=== PATIENT | female | born 1945 | race Hispanic/Latino ===

== ENCOUNTER 2018-09-15 15:45 | Emergency (ER) | payer MEDICARE, MEDICAID ==
[2018-09-15 16:10] LABS: #Eosinphils 0.2 thou/uL (0.0-0.7); #Lymphocytes 1.2 thou/uL (1.20-3.40); #Monocytes 0.5 thou/uL (0.11-0.59); #Neutrophils 3.2 thou/uL (1.40-6.50); %Basophils 0.2 % (0.0-1.0); %Eosinophils 3.8 % (0.0-10.0); %Lymphocytes 23.7 % (21.0-51.0); %Monocytes 9.6 % (0.0-10.0); %Neutrophils 62.7 % (42.0-75.0); Hemoglobin 13.1 g/dL (12.0-16.0); Mean Corpuscular HGB CONC 33.3 g/dL (32.0-36.0); Mean Corpuscular Hemoglobin 29.3 pg (27.0-31.0); Mean Corpuscular Volume 88.2 fL (78.0-98.0); Mean Platelet Volume 9.6 fL (7.4-10.4); Platelet Count 169 thou/uL (130-400); RBC Distribution Width 11.8 % (11.5-14.5); Red Blood Cell (RBC) Count 4.46 mill/uL (4.20-5.40); White Blood Cell (WBC) Count 5.2 thou/uL (4.8-10.8)
[2018-09-15 16:33] LABS: ALT (SGPT) 17 U/L (8-55); AST (SGOT) 20 U/L (5-34); Albumin 4.1 g/dL (3.4-4.8); Alkaline Phosphatase 121 U/L (40-150); Anion Gap 15 mmol/L (10-20); BUN (Urea Nitrogen) 13 mg/dL (9.8-20.1); Bilirubin, Total 0.5 mg/dL (0.2-1.2); Calc. Creatinine Clearance 0 mL/min (70-130); Calcium 8.9 mg/dL (7.8-10.44); Carbon Dioxide 24 mmol/L (23-31); Chloride 102 mmol/L (98-107); Estimated GFR-MDRD 63; Globulin 3.6 g/dL (2.4-3.5); Glucose 141 mg/dL (83-110); Potassium 3.5 mmol/L (3.5-5.1); Protein, Total 7.7 g/dL (6.0-8.3); Sodium 137 mmol/L (136-145)
--- NOTE | 2018-09-15 16:47 | CT ---
EXAM: CT brain without contrast HISTORY: Left-sided facial numbness for a week. COMPARISON: None TECHNIQUE: Multiple contiguous axial images were obtained and a CT of the brain without contrast. FINDINGS: A remote lacunar infarction is seen in the left ventricular white matter. A cavum septum pe llucidum is incidentally seen. No large confluent infarction is seen. There is no evidence of hydrocephalus, intracranial hemorrhage, or extra-axial fluid collection. The calvarium and overlying soft tissues are unremarkable. The visualized paranasal sinuses and masto id air cells are well aerated. IMPRESSION: No evidence of acute intracranial abnormality
--- NOTE | 2018-09-15 17:42 | RAD ---
EXAM: Single view of the chest HISTORY: Left-sided facial numbness for one week COMPARISON: None FINDINGS: Single view of the chest shows a normal sized cardiomediastinal silhouette. There is no maureen dence of consolidation, mass, or pleural effusion. The bones are unremarkable. IMPRESSION: No evidence of acute cardiopulmonary disease
--- NOTE | 2018-09-15 18:35 | MRI ---
EXAM: MRI of the brain without contrast HISTORY: Dizziness and left facial numbness 1:00 PM COMPARISON: CT brain 09/15/2018 TECHNIQUE: Multiplanar multisequence MR images were obtained of the brain without IV contrast. FINDINGS: Scattered foci of high T2/FLAIR signal in the subcortical and periventricular white matter are likely secondary to small vessel ischemic disease. No restricted diffusion. No hydronephrosis. No extra-axial fluid collection or intracranial hemorrhage. The expected flow voids are present. Corpus callosum, pituitary, and craniocervical junction are within normal limits. The calvarium and overlying soft tissues are unremarkable. The paranasal sinuses and mastoid air cells are well aerated. IMPRESSION: No evidence of acute intracranial abnormality.
== END 2018-09-15 19:25 | disposition home or self-care (01) ==
LOC: ERS 15:45
DX: R42 Dizziness and giddiness (principal); R20.2 Paresthesia of skin; J45.909 Unspecified asthma, uncomplicated; I10 Essential (primary) hypertension; E11.9 Type 2 diabetes mellitus without complications; Z86.73 Personal history of transient ischemic attack (TIA), and cerebral infarction without residual deficits; Z79.82 Long term (current) use of aspirin; Z79.899 Other long term (current) drug therapy
CPT/HCPCS: 36415; 70450; 70551; 71045; 80053; 85025; 93005; J7620

== ENCOUNTER 2022-03-08 11:53 | Emergency (ER) | payer MEDICARE, MEDICAID ==
[2022-03-08 14:15] LABS: #Eosinphils 0.2 thou/uL (0.0-0.7); #Lymphocytes 0.4 thou/uL (1.20-3.40); #Monocytes 0.6 thou/uL (0.11-0.59); #Neutrophils 7.7 thou/uL (1.40-6.50); %Basophils 0.2 % (0.0-1.0); %Eosinophils 1.8 % (0.0-10.0); %Lymphocytes 4.8 % (21.0-51.0); %Neutrophils 86.1 % (42.0-75.0); Hemoglobin 12.9 g/dL (12.0-16.0); Mean Corpuscular HGB CONC 32.6 g/dL (32.0-36.0); Mean Corpuscular Hemoglobin 29.3 pg (27.0-31.0); Mean Corpuscular Volume 89.7 fl (78.0-98.0); Mean Platelet Volume 9.8 fL (7.4-10.4); Platelet Count 184 10x3/uL (130-400); RBC Distribution Width 11.5 % (11.5-14.5); Red Blood Cell (RBC) Count 4.39 mill/uL (4.20-5.40); White Blood Cell (WBC) Count 8.9 10x3/uL (4.8-10.8)
[2022-03-08 14:31] LABS: ALT (SGPT) 26 U/L (8-55); AST (SGOT) 21 U/L (5-34); Albumin 3.9 g/dL (3.4-4.8); Alkaline Phosphatase 101 U/L (40-110); Anion Gap 14 mmol/L (10-20); BUN (Urea Nitrogen) 17 mg/dL (9.8-20.1); Bilirubin, Total 0.5 mg/dL (0.2-1.2); Calc. Creatinine Clearance 0 mL/min (70-130); Calcium 8.9 mg/dL (7.8-10.44); Carbon Dioxide 24 mmol/L (23-31); Chloride 103 mmol/L (98-107); Estimated GFR 75; Globulin 3.7 g/dL (2.4-3.5); Glucose 124 mg/dL (83-110); Lipase 25 U/L (8-78); Potassium 3.5 mmol/L (3.5-5.1); Protein, Total 7.6 g/dL (5.8-8.1); Sodium 137 mmol/L (136-145)
[2022-03-08 15:00] LABS: Bacteria/HPF 3+ HPF (None Seen); Bilirubin Negative (Negative); Blood, Urine Trace (Negative); Clarity Extra Turbid (Clear); Glucose, Urine (Dipstick) Normal (Negative); Ketone, Urine Negative (Negative); Leukocyte 500 Leu/uL (Negative); Nitrite Negative (Negative); Protein, Urine (Dipstick) 10 mg/dL (Neg-Trace); RBC/HPF 0-3 HPF (0-3); Specific Gravity, Urine 1.026 (1.002-1.036); Urobilinogen Normal mg/dL (Less than 2)
[2022-03-08 15:09] LABS: WBC/HPF 21-50 HPF (0-3)
[2022-03-08] MEDS ORDERED: Acetaminophen 500 MG TAB ONE (15:30)
== END 2022-03-08 15:47 | disposition home or self-care (01) ==
LOC: ERS 11:53
DX: J11.1 Influenza due to unidentified influenza virus with other respiratory manifestations (principal); N39.0 Urinary tract infection, site not specified; I10 Essential (primary) hypertension; E11.9 Type 2 diabetes mellitus without complications; Z79.899 Other long term (current) drug therapy
CPT/HCPCS: 36415; 80053; 81003; 81015; 83690; 85025; 87086; 87804; 99284

== ENCOUNTER 2023-10-02 12:14 | Outpatient (CLI) | payer MEDICARE | END 2023-10-02 12:15 | disposition home or self-care (01) | LOC: ULT 12:14 | PROVIDERS: ATTEND Family Medicine | DX: R06.00 Dyspnea, unspecified (principal); R60.0 Localized edema; I08.1 Rheumatic disorders of both mitral and tricuspid valves | CPT/HCPCS: 93306 ==